=== PATIENT | male | born 1945 | race Caucasian/White ===

== ENCOUNTER 2017-08-11 10:04 | Day surgery (SDC) | payer OTHER ==
[~2017-08-11 10:04] MED LIST: ASPI325T PO; LISI-357 PO; LOVA20TA PO; MAXZ PO; PLAV75TA PO
[2017-08-11] MEDS ORDERED: POVIDONE IODINE 5% (ANTISEPSIS KIT) 4 APPLICATIONS EACH NARE SCH (10:30)
[2017-08-11] MEDS ORDERED: CHLORHEXIDINE GLUCONATE 2 % 1 PACK (2 CLOTHS) TOPICAL SCH (10:30)
[2017-08-11] MEDS ORDERED: NS 1000 ML IV SCH (10:30)
[2017-08-11] MEDS ORDERED: MUPIROCIN 2% OINT 1 APPLIC/GM SYR NASAL SCH (10:30)
[2017-08-11] MEDS ORDERED: ceFAZolin 2 GM PREMIX 50 ML IV SCH (10:30)
[2017-08-11] MEDS ORDERED: METO1TAB9 PO (10:35)
[2017-08-11] MEDS ORDERED: LOSA50TA PO ×2 (10:35→10:36)
[2017-08-11] MEDS ORDERED: ASPI81CH6 CHEW (10:35)
[2017-08-11] MEDS ORDERED: PLAV75TA29 PO (10:35)
[2017-08-11] MEDS ORDERED: ATOR10TA15 PO (10:35)
[2017-08-11] MEDS ORDERED: D31000CA3 PO (10:37)
--- NOTE | 2017-08-11 12:55 | MA ---
cc: SHAN TAVERA MD DATE 08/10/2017 INDICATION TIA PROCEDURES PERFORMED Loop recorder insertion. DESCRIPTION OF PROCEDURE The patient was brought to the DOC unit in the postabsorptive state. After informed consent was obtained, a [email or web address] LINQ loop recorder was inserted subcutaneously to the left chest. The patient tolerated procedure well without any apparent complications. Tachybrady pause and atrial fibrillation detection was enabled. The serial number was [id number]. The initial R-wave was 0.72 mV. MD ALEXA Ferreira/ALBIN /12:22 PM /12:44 PM
== END 2017-08-11 13:40 | disposition home or self-care (01) ==
LOC: HDOC 10:04 → HDIC 10:04 → HDOC 13:40
PROVIDERS: ATTEND Nuclear Medicine Nuclear Cardiology
DX: G45.9 Transient cerebral ischemic attack, unspecified (principal)
CPT/HCPCS: 33282; 99152; C1764; J0690; J7030